=== PATIENT | male | born 1985 | race American Indian/Alaskan Native ===

== ENCOUNTER 2017-11-04 10:50 | Emergency (ER) | payer OTHER, BC ==
[2017-11-04 11:13] VITALS: BP 127/74
[2017-11-04] MEDS ORDERED: MOTRIN PO ONE (13:17)
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
== END 2017-11-04 14:11 | disposition home or self-care (01) ==
LOC: ED 10:50
DX: S13.4XXA Sprain of ligaments of cervical spine, initial encounter (principal); F17.200 Nicotine dependence, unspecified, uncomplicated; V49.49XA Driver injured in collision with other motor vehicles in traffic accident, initial encounter; X58.XXXA Exposure to other specified factors, initial encounter; Y93.89 Activity, other specified; Y92.89 Other specified places as the place of occurrence of the external cause; Y99.8 Other external cause status
CPT/HCPCS: 99282